=== PATIENT | female | born 1985 | race Caucasian/White ===

== ENCOUNTER 2020-05-07 15:08 | Emergency (ER) | payer BC, OTHER ==
[2020-05-07 15:45] LABS: Bilirubin Negative (Negative); Blood, Urine Large (Negative); Glucose, Urine (Dipstick) Negative (Negative); Leukocyte Small (Negative); Nitrite Positive (Negative); Protein, Urine (Dipstick) 100 mg/dL (Neg-Trace); Urobilinogen 0.2 mg/dL (Less than 2)
[2020-05-07 15:48] LABS: Clarity Hazy (Clear)
[2020-05-07 15:49] LABS: Pregnancy Test - Urine (BHCG) Negative (Negative); Pregu Control Background? CLEAR/WHITE (CLR/WHITE); Pregu Control Bar Appear? YES (CONTROL BAR)
[2020-05-07 15:57] LABS: Squamous Epithelial 0-3 HPF (0-3)
[2020-05-07 15:58] LABS: Bacteria/HPF 3+ HPF (None Seen)
[2020-05-07] MEDS ORDERED: Sodium Chloride 0.9% 1,000 ML ONE (16:03)
[2020-05-07] MEDS ORDERED: Ketorolac Tromethamine 30 MG/ML VIAL ONE (16:03)
[2020-05-07 16:44] LABS: #Eosinphils 0.1 thou/uL (0.0-0.7); #Lymphocytes 0.6 thou/uL (1.20-3.40); #Neutrophils 11.3 thou/uL (1.40-6.50); %Basophils 0.4 % (0.0-1.0); %Eosinophils 0.8 % (0.0-10.0); %Lymphocytes 4.8 % (21.0-51.0); %Monocytes 7.6 % (0.0-10.0); %Neutrophils 86.4 % (42.0-75.0); Hemoglobin 11.8 g/dL (12.0-16.0); Mean Corpuscular HGB CONC 31.4 g/dL (32.0-36.0); Mean Corpuscular Hemoglobin 31.7 pg (27.0-31.0); Mean Platelet Volume 7.1 fL (7.4-10.4); Platelet Count 229 thou/uL (130-400); RBC Distribution Width 12.4 % (11.5-14.5); Red Blood Cell (RBC) Count 3.72 mill/uL (4.20-5.40); White Blood Cell (WBC) Count 13.1 thou/uL (4.8-10.8)
[2020-05-07 17:00] LABS: ALT (SGPT) 10 U/L (8-55); AST (SGOT) 15 U/L (5-34); Albumin 3.6 g/dL (3.5-5.0); Alkaline Phosphatase 58 U/L (40-110); Anion Gap 14 mmol/L (10-20); BUN (Urea Nitrogen) 13 mg/dL (7.0-18.7); Bilirubin, Total 0.5 mg/dL (0.2-1.2); Calc. Creatinine Clearance 0 mL/min (70-130); Calcium 8.4 mg/dL (7.8-10.44); Carbon Dioxide 24 mmol/L (22-29); Chloride 102 mmol/L (98-107); Estimated GFR-MDRD Greater than 90; Globulin 2.6 g/dL (2.4-3.5); Glucose 84 mg/dL (70-105); Potassium 3.6 mmol/L (3.5-5.1); Protein, Total 6.2 g/dL (6.0-8.3); Sodium 136 mmol/L (136-145)
--- NOTE | 2020-05-07 17:49 | CT ---
CT ABDOMEN AND PELVIS PERFORMED WITHOUT CONTRAST ENHANCEMENT: 05/07/20 HISTORY: Left sided flank pain. history of kidney stones. There are bibasilar lung changes in the dependent portions of both lower lobes more suggestive of stevie e prominent atelectatic changes although does have some ground glass opacity and is prominent for a p atient of this age. Possibility of infection and COVID exposure is not excluded. The liver, spleen, pancreas, and gallbladder regions all appear unremarkable. Right and left adrenal glands are normal. Bilateral punctate renal calculi are seen and changes that would be suggestive of medullary sponge kidneys. Prominent calcifications in the medullary pyramid re gions. No obstruction of either ureter and no renal calculi are identified. There is no significant p eriaortic or mesenteric adenopathy. CT OF PELVIS PERFORMED WITHOUT CONTRAST ENHANCEMENT: A mild amount of free fluid within the cul-de-sac region. I do not see any signs of any large ovarian cysts. The appendix is unremarkable. IMPRESSION: 1. Bilateral punctate nonobstructing renal calculi and evidence for medullary sponge kidney. 2. Mild free fluid in the cul-de-sac region. 3. Normal appendix. 4. Prominent bibasilar lung changes. This could just represent prominent atelectasis but possibi lity of infectious process and COVID would be a less likely consideration. Clinical correlation recom mended. POS: [facility]WIN
[2020-05-07] MEDS ORDERED: Cipro 250 MG TAB ONE (18:10)
[2020-05-07] MEDS ORDERED: cefTRIAXone\\ROCEPHIN 1 GM VIAL ONE (18:11)
[2020-05-07] MEDS ORDERED: Fentanyl 100 MCG/2 ML VIAL ONE (18:27)
[2020-05-09 12:09] LABS: SARS-CoV-2 MS2 Positive; SARS-CoV-2 N Gene Negative; SARS-CoV-2 S Gene Negative; SARS-CoV-2 orf1ab Negative
== END 2020-05-07 19:20 | disposition home or self-care (01) ==
LOC: NAV ERS 15:08
DX: N10 Acute pyelonephritis (principal); K21.9 Gastro-esophageal reflux disease without esophagitis; F90.9 Attention-deficit hyperactivity disorder, unspecified type; F17.210 Nicotine dependence, cigarettes, uncomplicated; I10 Essential (primary) hypertension; Z79.899 Other long term (current) drug therapy
CPT/HCPCS: 74176; 80053; 81003; 81015; 81025; 83605; 85025; 87040; 87077; 87086; 87186; 87635; 96374; 96375; J0696; J1885; J3010; J7050; U0003